=== PATIENT | female | born 1960 | race Hispanic/Latino ===

== ENCOUNTER 2024-08-19 13:11 | Inpatient (IN) | payer OTHER ==
[~2024-08-19] VITALS: Ht 157.5 cm; Wt 89.4 kg
[2024-08-19] VITALS (14 sets, daily range): BP systolic 108–136; BP diastolic 57–100; PULSE 110–120; RESP 16–30; TEMP 98; O2SAT 95–97
[2024-08-19 13:35] LABS: BASOPHILS # (AUTO) 0.07 K/uL (0.00-0.20); BASOPHILS % (AUTO) 0.3 % (0.0-5.0); EOSINOPHILS # (AUTO) 0.02 K/uL (0.00-0.70); EOSINOPHILS % (AUTO) 0.1 % (0.0-8.0); LYMPHOCYTES # (AUTO) 1.1 K/uL (1.0-4.8); LYMPHOCYTES % (AUTO) 5.2 % (21.0-51.0); MEAN CORPUSCULAR HEMOGLOBIN 29.1 pg (27.0-33.0); MEAN CORPUSCULAR HGB CONC 32.3 g/dL (32.0-36.0); MEAN CORPUSCULAR VOLUME 90.3 fL (79-99); MONOCYTES % (AUTO) 4.6 % (3.0-13.0); NEUTROPHILS # (AUTO) 19.1 K/uL (1.8-7.7); NEUTROPHILS % (AUTO) 88.9 % (40.0-77.0); PLATELET COUNT (AUTO) 311 K/uL (130-400); RED BLOOD CELL COUNT(AUTO) 4.43 MIL/uL (4.00-5.50); RED CELL DISTRIBUTION WIDTH 14.5 % (11.0-15.5); WHITE BLOOD COUNT (AUTO) 21.5 K/uL (4.8-10.8)
[2024-08-19 13:36] LABS: ABG BASE EXCESS 3.8 mmol/L (-2.0-3.0); ABG HCO3 33.2 mmol/L (21.0-28.0); ABG OXYGEN SATURATION 97.7 % (94.0-98.0); ABG PCO2 74 mmHg (32-45); ABG PH 7.268 (7.350-7.450); CARBON MONOXIDE 0.8 % (0.5-1.5); HHb 2.3; PO2, ARTERIAL BG 114.9 mmHg (83.0-108.0); VENT MODE, BG NRM (ROOM AIR)
[2024-08-19 13:47] LABS: SARS-CoV-2, RNA, NAAT NEGATIVE SARS CoV-2 (NEGATIVE)
[2024-08-19] MEDS: diazePAM 5 MG/ML 2 ML SYG IVP ONE (13:48)
[2024-08-19 13:51] LABS: INFLUENZA TYPE A Negative For Type A (NEGATIVE); INFLUENZA TYPE B Negative For Type B (NEGATIVE)
[2024-08-19 14:00] LABS: B-TYPE NATRIURETIC PEPTIDE 118 pg/mL (0-100)
[2024-08-19 14:12] LABS: INR 1.11 (0.85-1.15); PROTHROMBIN TIME 11.9 SEC (9.6-11.6)
[2024-08-19 14:13] LABS: PARTIAL THROMBOPLASTIN TIME 27.2 SEC (26.3-35.5)
[2024-08-19 14:25] LABS: CREATININE 0.6 mg/dL (0.5-1.0); POTASSIUM 4.5 mmol/L (3.5-5.1)
[2024-08-19 14:29] LABS: MAGNESIUM 1.9 mg/dL (1.80-2.40)
[2024-08-19] MEDS: IpraTROPium/alBUTERol SULFATE 3 ML SOLUTION IH ONE (14:37)
[2024-08-19] MEDS: cefTRIAXone 1G VIAL IVPB ONE (14:38)
[2024-08-19] MEDS: Solu-medROL 125MG VIAL IVP ONE (14:38)
[2024-08-19] MEDS: AZITHROMYCIN 500MG+NS 250ML 250 ML IVPB STA (14:39)
[2024-08-19 15:05] LABS: ABG BASE EXCESS 2.3 mmol/L (-2.0-3.0); ABG HCO3 32.4 mmol/L (21.0-28.0); ABG OXYGEN SATURATION 98.3 % (94.0-98.0); ABG PCO2 77 mmHg (32-45); VENT MODE, BG BIPAP14-6 (ROOM AIR)
[2024-08-19] MEDS ORDERED: IOHEXOL 350 MG/ML 100ML INFUS..BTL IV ONE (16:02)
[2024-08-19] MEDS: 0.9%NACL 1000ML 2,721 ML IV ONE (16:17)
[2024-08-19] MEDS: Solu-medROL 40MG VIAL IVP SCH (17:00)
[2024-08-19] MEDS ORDERED: ondanSETRON 4MG INJ IVP PRN (17:00)
[2024-08-19] MEDS ORDERED: acetaMINOPHEN 325 MG TAB PO PRN (17:00)
[2024-08-19] MEDS ORDERED: metoPROLOL tartRATE 1 MG/ML 5ML VIAL IV PRN (17:30)
[2024-08-19 18:38] LABS: ABG BASE EXCESS 5.9 mmol/L (-2.0-3.0); ABG HCO3 32.4 mmol/L (21.0-28.0); ABG OXYGEN SATURATION 98.3 % (94.0-98.0); ABG PCO2 55 mmHg (32-45); ABG PH 7.389 (7.350-7.450); CARBON MONOXIDE 0.8 % (0.5-1.5); DEVICE COMMENT LR RN; HHb 1.7; VENT MODE, BG BIPAP 18 8 (ROOM AIR)
[2024-08-19 18:47] LABS: ABG BASE EXCESS 5.6 mmol/L (-2.0-3.0); ABG OXYGEN SATURATION 96.1 % (94.0-98.0); ABG PCO2 61 mmHg (32-45); ABG PH 7.353 (7.350-7.450); CARBON MONOXIDE 0.7 % (0.5-1.5); DEVICE COMMENT LR RN; HHb 3.9; PO2, ARTERIAL BG 88.2 mmHg (83.0-108.0); VENT MODE, BG 18 8 (ROOM AIR)
[2024-08-19 18:50] LABS: ADD UA MICROSCOPIC YES; APPEARANCE,URINE CLEAR (CLEAR); BILIRUBIN,URINE NEGATIVE (NEGATIVE); COLOR,URINE YELLOW (YELLOW); GLUCOSE, URINE (UA) NEGATIVE (NEGATIVE); KETONES,URINE 20 mg/dL (NEGATIVE); LEUKOCYTE ESTERASE ,URINE NEGATIVE Leu/uL (NEGATIVE); NITRATE,URINE 2+ (NEGATIVE); OCCULT BLOOD,URINE SMALL (NEGATIVE); PROTEIN,URINE 30 mg/dL (NEGATIVE)
[2024-08-19 18:52] LABS: BACTERIA,URINE RARE /HPF (None Seen); MUCUS,URINE FEW LPF (None Seen); SQUAMOUS EPITHELIAL CELL,UR RARE /HPF (0-2)
[2024-08-19] MEDS: IpraTROPium 0.5 MG/2.5 ML INH IH SCH (19:10)
[2024-08-19] MEDS: ALBUTEROL 0.083% 2.5 MG/3 ML INH IH SCH (19:10)
[2024-08-19] MEDS: furoSEMIDE 40MG VIAL IV SCH (20:10)
[2024-08-19] MEDS: FAMOTIDINE 20MG VIAL IV SCH (21:11)
[2024-08-20] VITALS (88 sets, daily range): BP systolic 104–147; BP diastolic 62–100; PULSE 76–127; RESP 13–35; TEMP 97.9–98.9; O2SAT 94–99
[2024-08-20] MEDS: ENOXAPARIN SODIUM 40 MG/0.4 ML SYRINGE SQ SCH (08:20)
[2024-08-20] MEDS ORDERED: LOSA50TA64 PO (10:12)
[2024-08-20] MEDS ORDERED: HYDR-4068 PO (10:12)
[2024-08-20] MEDS: ZOSYN 3.375GM +NS 50ML IV SCH (10:53)
[2024-08-20] MEDS: HYDROcodone/acetaMINOPHEN 10/325 MG TAB PO PRN (10:53)
[2024-08-20] MEDS: ketOROlac 15MG/ML VIAL (15MG/ML) IV ONE (11:14)
[2024-08-20] MEDS: AZITHROMYCIN 500MG+NS 250ML 250 ML IVPB SCH (16:23)
[2024-08-20] MEDS ORDERED: CEFTRIAXONE 2GM VIAL IVPB SCH (17:00)
[2024-08-20] MEDS: ENOXAPARIN SODIUM 100 MG/1 ML SQ SCH (19:47)
[2024-08-20] MEDS: NYSTatin 15 GM POWDER TP SCH (21:00)
[2024-08-21] VITALS (60 sets, daily range): BP systolic 0–143; BP diastolic 0–94; PULSE 60–114; RESP 12–31; TEMP 97.9–98.8; O2SAT 90–97
[2024-08-21 04:32] LABS: BASOPHILS # (AUTO) 0.03 K/uL (0.00-0.20); BASOPHILS % (AUTO) 0.2 % (0.0-5.0); HEMATOCRIT 39.3 % (36-48); IMMATURE GRANULOCYTE ABSOLUTE 0.12 K/uL (0-1); LYMPHOCYTES # (AUTO) 0.6 K/uL (1.0-4.8); MEAN CORPUSCULAR HGB CONC 31.8 g/dL (32.0-36.0); MEAN CORPUSCULAR VOLUME 94.2 fL (79-99); MONOCYTES # (AUTO) 0.5 K/uL (0.1-1.0); MONOCYTES % (AUTO) 2.5 % (3.0-13.0); NEUTROPHILS # (AUTO) 17.8 K/uL (1.8-7.7); NEUTROPHILS % (AUTO) 93.7 % (40.0-77.0); PLATELET COUNT (AUTO) 287 K/uL (130-400); RED BLOOD CELL COUNT(AUTO) 4.17 MIL/uL (4.00-5.50); RED CELL DISTRIBUTION WIDTH 14.5 % (11.0-15.5)
[2024-08-21 04:43] LABS: ALBUMIN 2.9 g/dL (3.5-5.0); BILIRUBIN,TOTAL 0.6 mg/dL (0.2-1.0); CREATININE 0.6 mg/dL (0.5-1.0); TOTAL PROTEIN, SERUM 7.3 g/dL (6.0-8.3)
[2024-08-21 09:38] LABS: ABG BASE EXCESS 12.1 mmol/L (-2.0-3.0); ABG HCO3 39.3 mmol/L (21.0-28.0); ABG OXYGEN SATURATION 94.2 % (94.0-98.0); ABG PCO2 63 mmHg (32-45); ABG PH 7.416 (7.350-7.450); CARBON MONOXIDE 0.7 % (0.5-1.5); DEVICE COMMENT LR; HHb 5.7; PO2, ARTERIAL BG 75.4 mmHg (83.0-108.0); VENT MODE, BG BIPAP 14-6 (ROOM AIR)
[2024-08-21] MEDS: ENOXAPARIN SODIUM 100 MG/1 ML SQ SCH (09:57)
[2024-08-21] MEDS: dexmedeTOMIDine 400MCG/NS100ML IV SCH (11:36)
[2024-08-21 16:15] LABS: ABG HCO3 39.4 mmol/L (21.0-28.0); ABG OXYGEN SATURATION 94.7 % (94.0-98.0); ABG PCO2 56 mmHg (32-45); ABG PH 7.467 (7.350-7.450); DEVICE COMMENT LR; PO2, ARTERIAL BG 70.6 mmHg (83.0-108.0); VENT MODE, BG BIPAP14-6 (ROOM AIR)
[2024-08-21 21:09] LABS: APPEARANCE,URINE CLOUDY (CLEAR); BILIRUBIN,URINE NEGATIVE (NEGATIVE); COLOR,URINE COLORLESS (YELLOW); GLUCOSE, URINE (UA) NEGATIVE (NEGATIVE); KETONES,URINE 5 mg/dL (NEGATIVE); LEUKOCYTE ESTERASE ,URINE NEGATIVE Leu/uL (NEGATIVE); NITRATE,URINE NEGATIVE (NEGATIVE); OCCULT BLOOD,URINE LARGE (NEGATIVE); PH,URINE 6.5 (5.0-8.0); PROTEIN,URINE NEGATIVE (NEGATIVE); UROBILINOGEN,URINE 0.2 mg/dL (0.2-1.0)
[2024-08-21 21:11] LABS: ADD UA MICROSCOPIC YES
[2024-08-21 21:12] LABS: MUCUS,URINE RARE LPF (None Seen); OTHER CASTS, URINE 2 /LPF (None Seen); RBC,URINE TNTC /HPF (0-1); SQUAMOUS EPITHELIAL CELL,UR RARE /HPF (0-2); UNCLASSIFIED CRYSTAL 5 /HPF (None Seen)
[2024-08-22] VITALS (38 sets, daily range): BP systolic 115–150; BP diastolic 60–92; PULSE 77–106; RESP 14–30; TEMP 98.6–99.4; O2SAT 90–96
[2024-08-22 04:41] LABS: BASOPHILS # (AUTO) 0.02 K/uL (0.00-0.20); BASOPHILS % (AUTO) 0.1 % (0.0-5.0); HEMATOCRIT 39.4 % (36-48); IMMATURE GRANULOCYTE ABSOLUTE 0.12 K/uL (0-1); LYMPHOCYTES # (AUTO) 0.6 K/uL (1.0-4.8); LYMPHOCYTES % (AUTO) 3.2 % (21.0-51.0); MEAN CORPUSCULAR HEMOGLOBIN 29.2 pg (27.0-33.0); MEAN CORPUSCULAR HGB CONC 32.2 g/dL (32.0-36.0); MEAN CORPUSCULAR VOLUME 90.6 fL (79-99); MONOCYTES # (AUTO) 0.7 K/uL (0.1-1.0); MONOCYTES % (AUTO) 4.3 % (3.0-13.0); NEUTROPHILS # (AUTO) 15.5 K/uL (1.8-7.7); NEUTROPHILS % (AUTO) 91.7 % (40.0-77.0); PLATELET COUNT (AUTO) 288 K/uL (130-400); RED BLOOD CELL COUNT(AUTO) 4.35 MIL/uL (4.00-5.50); RED CELL DISTRIBUTION WIDTH 14.5 % (11.0-15.5)
[2024-08-22 05:12] LABS: BILIRUBIN,TOTAL 0.8 mg/dL (0.2-1.0); CREATININE 0.6 mg/dL (0.5-1.0); MAGNESIUM 2.1 mg/dL (1.80-2.40); PHOSPHORUS 4.1 mg/dL (2.5-4.9); POTASSIUM 3.4 mmol/L (3.5-5.1); TOTAL PROTEIN, SERUM 7.3 g/dL (6.0-8.3)
[2024-08-22 06:37] LABS: ABG BASE EXCESS 11.4 mmol/L (-2.0-3.0); ABG HCO3 36.5 mmol/L (21.0-28.0); ABG OXYGEN SATURATION 90.7 % (94.0-98.0); ABG PCO2 48 mmHg (32-45); ABG PH 7.496 (7.350-7.450); DEVICE COMMENT LRJAMES; PO2, ARTERIAL BG 55.1 mmHg (83.0-108.0); VENT MODE, BG NC (ROOM AIR)
[2024-08-22] MEDS ORDERED: PoTASSium chloRIDE 10MEQ/100ML 100 ML IV PRN (07:00)
[2024-08-22] MEDS: polyETHYLene GLYCol 3350 17 GM POWD.PACK PO SCH (09:33)
[2024-08-22] MEDS: Solu-medROL 40MG VIAL IVP SCH (09:38)
[2024-08-22] MEDS: furoSEMIDE 20 MG TABLET PO SCH ×2 (09:38→16:24)
[2024-08-22] MEDS: PANTOPrazole 40 MG/VIAL IVP SCH (09:38)
[2024-08-22] MEDS: PoTASSium chloRIDE 10MEQ SR 10 MEQ/TAB TAB.SR.24H PO PRN (09:39)
[2024-08-22] MEDS: ketOROlac 15MG/ML VIAL (15MG/ML) IV PRN (09:40)
[2024-08-22] MEDS: SODIUM CHLORIDE FOR INHALATION 3 ML VIAL.NEB. IH ONE (10:11)
[2024-08-22 15:16] LABS: INR 1.14 (0.85-1.15); PROTHROMBIN TIME 12.2 SEC (9.6-11.6)
[2024-08-22] MEDS: BUDESONIDE 0.5 MG/2 ML INH IH SCH (18:30)
[2024-08-22] MEDS: SODIUM CHLORIDE 3% FOR INHALATION 4 ML/AMP VIAL.NEB IH ONE (18:38)
[2024-08-22] MEDS: PoTASSium chl 10% ELIXIR 20MEQ 20 MEQ/15 ML UDCUP GT PRN (19:43)
[2024-08-23] VITALS (36 sets, daily range): BP systolic 116–160; BP diastolic 52–105; PULSE 76–106; RESP 14–34; TEMP 97.7–98.7; O2SAT 92–99
[2024-08-23] MEDS: guaiFENesin SUGAR-FREE 100 MG/5 ML UDCUP PO PRN (03:08)
[2024-08-23 04:41] LABS: BASOPHILS # (AUTO) 0.04 K/uL (0.00-0.20); BASOPHILS % (AUTO) 0.2 % (0.0-5.0); EOSINOPHILS # (AUTO) 0.01 K/uL (0.00-0.70); EOSINOPHILS % (AUTO) 0.1 % (0.0-8.0); HEMATOCRIT 40.4 % (36-48); IMMATURE GRANULOCYTE ABSOLUTE 0.32 K/uL (0-1); LYMPHOCYTES # (AUTO) 0.8 K/uL (1.0-4.8); LYMPHOCYTES % (AUTO) 4.2 % (21.0-51.0); MEAN CORPUSCULAR HEMOGLOBIN 29.1 pg (27.0-33.0); MEAN CORPUSCULAR HGB CONC 31.9 g/dL (32.0-36.0); MONOCYTES # (AUTO) 1.1 K/uL (0.1-1.0); MONOCYTES % (AUTO) 5.4 % (3.0-13.0); NEUTROPHILS # (AUTO) 17.5 K/uL (1.8-7.7); NEUTROPHILS % (AUTO) 88.5 % (40.0-77.0); PLATELET COUNT (AUTO) 276 K/uL (130-400); RED BLOOD CELL COUNT(AUTO) 4.44 MIL/uL (4.00-5.50); RED CELL DISTRIBUTION WIDTH 14.6 % (11.0-15.5); WHITE BLOOD COUNT (AUTO) 19.7 K/uL (4.8-10.8)
[2024-08-23 05:03] LABS: ALBUMIN 3.1 g/dL (3.5-5.0); BILIRUBIN,TOTAL 1.3 mg/dL (0.2-1.0); CREATININE 0.6 mg/dL (0.5-1.0); PHOSPHORUS 3.6 mg/dL (2.5-4.9); POTASSIUM 3.8 mmol/L (3.5-5.1); TOTAL PROTEIN, SERUM 7.1 g/dL (6.0-8.3)
[2024-08-24] VITALS (16 sets, daily range): BP systolic 112–132; BP diastolic 72–84; PULSE 61–115; RESP 16–30; TEMP 97.6–98.4; O2SAT 92–96
[2024-08-24 03:33] LABS: BASOPHILS # (AUTO) 0.07 K/uL (0.00-0.20); BASOPHILS % (AUTO) 0.3 % (0.0-5.0); EOSINOPHILS # (AUTO) 0.03 K/uL (0.00-0.70); EOSINOPHILS % (AUTO) 0.1 % (0.0-8.0); HEMATOCRIT 40.3 % (36-48); IMMATURE GRANULOCYTE ABSOLUTE 0.32 K/uL (0-1); LYMPHOCYTES # (AUTO) 1.1 K/uL (1.0-4.8); LYMPHOCYTES % (AUTO) 4.3 % (21.0-51.0); MEAN CORPUSCULAR HEMOGLOBIN 29.6 pg (27.0-33.0); MEAN CORPUSCULAR VOLUME 92.4 fL (79-99); MONOCYTES # (AUTO) 1.7 K/uL (0.1-1.0); MONOCYTES % (AUTO) 6.9 % (3.0-13.0); NEUTROPHILS # (AUTO) 21.4 K/uL (1.8-7.7); NEUTROPHILS % (AUTO) 87.1 % (40.0-77.0); PLATELET COUNT (AUTO) 231 K/uL (130-400); RED BLOOD CELL COUNT(AUTO) 4.36 MIL/uL (4.00-5.50); RED CELL DISTRIBUTION WIDTH 14.4 % (11.0-15.5); WHITE BLOOD COUNT (AUTO) 24.6 K/uL (4.8-10.8)
[2024-08-24 06:14] LABS: ASPARTATE AMINOTRANSFERASE 101 U/L (10-37); BILIRUBIN,TOTAL 0.7 mg/dL (0.2-1.0); CARBON DIOXIDE 30 mmol/L (21-32); CHLORIDE 99 mmol/L (101-111); CREATININE 0.6 mg/dL (0.5-1.0); GLOMERULAR FILTR. RATE CALC 101 mL/min (>90); GLUCOSE,RANDOM 125 mg/dL (70-105); PHOSPHORUS 3.9 mg/dL (2.5-4.9); POTASSIUM 4.4 mmol/L (3.5-5.1); SODIUM SERUM 143 mmol/L (136-145); UREA NITROGEN, BLOOD 31 mg/dL (7-18)
[2024-08-24 06:50] LABS: ALANINE AMINOTRANSFERASE < 6 U/L (12-78)
[2024-08-24] MEDS: furoSEMIDE 40MG VIAL IV SCH (09:24)
[2024-08-24] MEDS: ENOXAPARIN SODIUM 40 MG/0.4 ML SYRINGE SQ SCH (09:26)
[2024-08-24] MEDS: BisaCODYL 10 MG SUPP.RECT RC SCH (09:26)
[2024-08-24] MEDS ORDERED: COMPOUND IV MISC 1 EACH IVSOLN MISC PRN (14:00)
[2024-08-24] MEDS: levoFLOXacin 500 MG/D5W 100 ML 100 ML IV SCH (14:41)
[2024-08-24] MEDS: MEROPENEM 1 GM in 0.9%NACL 100ML 100 ML IVPB SCH (14:46)
[2024-08-24] MEDS: BUDESONIDE 0.5 MG/2 ML INH IH SCH (18:27)
[2024-08-25] VITALS (13 sets, daily range): BP systolic 106–139; BP diastolic 57–83; PULSE 89–107; RESP 16–20; TEMP 97.7–98.5; O2SAT 92–93
[2024-08-25 03:40] LABS: HEMATOCRIT 41.3 % (36-48); MEAN CORPUSCULAR HEMOGLOBIN 29.8 pg (27.0-33.0); MEAN CORPUSCULAR HGB CONC 32.9 g/dL (32.0-36.0); MEAN CORPUSCULAR VOLUME 90.6 fL (79-99); RED BLOOD CELL COUNT(AUTO) 4.56 MIL/uL (4.00-5.50); RED CELL DISTRIBUTION WIDTH 14.2 % (11.0-15.5); WHITE BLOOD COUNT (AUTO) 25.3 K/uL (4.8-10.8)
[2024-08-25 03:59] LABS: BILIRUBIN,TOTAL 0.8 mg/dL (0.2-1.0); CREATININE 0.6 mg/dL (0.5-1.0); MAGNESIUM 1.8 mg/dL (1.80-2.40); POTASSIUM 3.7 mmol/L (3.5-5.1)
== END 2024-08-25 23:09 | DRG 871 ==
LOC: EDH 13:11 → EDBD 13:11 → EDHIP 17:04 → 2BH 20:11 → 2DH 08-23 16:36
PROVIDERS: ADMIT Internal Medicine; ATTEND Internal Medicine
PROC: 5A09457 Assistance with Respiratory Ventilation, 24-96 Consecutive Hours, Continuous Positive Airway Pressure (ICD-10-PCS; principal; 2024-08-19)
PROC: 5A09357 Assistance with Respiratory Ventilation, Less than 24 Consecutive Hours, Continuous Positive Airway Pressure (ICD-10-PCS; 2024-08-21)
PROC: 5A09357 Assistance with Respiratory Ventilation, Less than 24 Consecutive Hours, Continuous Positive Airway Pressure (ICD-10-PCS; 2024-08-22)
PROC: 05HF33Z Insertion of Infusion Device into Left Cephalic Vein, Percutaneous Approach (ICD-10-PCS; 2024-08-22)
PROC: B54NZZA Ultrasonography of Left Upper Extremity Veins, Guidance (ICD-10-PCS; 2024-08-22)
PROC: 5A09357 Assistance with Respiratory Ventilation, Less than 24 Consecutive Hours, Continuous Positive Airway Pressure (ICD-10-PCS; 2024-08-23)
DX: A41.9 Sepsis, unspecified organism (principal); I21.A1 Myocardial infarction type 2; J18.9 Pneumonia, unspecified organism; I50.33 Acute on chronic diastolic (congestive) heart failure; J96.21 Acute and chronic respiratory failure with hypoxia; J96.22 Acute and chronic respiratory failure with hypercapnia; N30.00 Acute cystitis without hematuria; J90 Pleural effusion, not elsewhere classified; C34.92 Malignant neoplasm of unspecified part of left bronchus or lung; C34.91 Malignant neoplasm of unspecified part of right bronchus or lung; E87.3 Alkalosis; Z20.822 Contact with and (suspected) exposure to COVID-19; I11.0 Hypertensive heart disease with heart failure; E11.65 Type 2 diabetes mellitus with hyperglycemia; R59.9 Enlarged lymph nodes, unspecified; E86.0 Dehydration; E66.9 Obesity, unspecified; Z86.711 Personal history of pulmonary embolism; Z68.36 Body mass index [BMI] 36.0-36.9, adult; Z85.038 Personal history of other malignant neoplasm of large intestine; B37.2 Candidiasis of skin and nail
CPT/HCPCS: 36415; 36556; 36600; 71045; 71270; 80048; 80053; 80061; 81001; 82435; 82550; 82803; 82947; 82948; 83605; 83735; 83880; 84100; 84132; 84145; 84295; 84484; 85018; 85025; 85027; 85610; 85730; 86140; 87040; 87071; 87086; 87205; 87449; 87635; 87641; 87804; 87880; 93005; 93306; 93970; 93971; 94640; 94660; 94664; 94667; 94668; 96374; 96375; 96376; 99291; A4344; B4082; G0378; J0456; J0696; J1650; J1885; J1940; J1956; J2185; J2470; J2543; J2919; J3360; J3490; J7030; Q9967; C1750